=== PATIENT | female | born 1990 | race Caucasian/White ===

== ENCOUNTER 2017-10-26 09:16 | Emergency (ER) | payer BC ==
[2017-10-26] MEDS ORDERED: Albuterol Sulfate 2.5 mg/0.5 ml Neb ONE ×2 (09:41→10:13)
[2017-10-26] MEDS ORDERED: predniSONE 20 MG TAB ONE (10:14)
== END 2017-10-26 11:08 | disposition home or self-care (01) ==
LOC: SCSER 09:16
DX: O99.512 Diseases of the respiratory system complicating pregnancy, second trimester (principal); J45.901 Unspecified asthma with (acute) exacerbation; O99.282 Endocrine, nutritional and metabolic diseases complicating pregnancy, second trimester; E03.9 Hypothyroidism, unspecified; O99.342 Other mental disorders complicating pregnancy, second trimester; F32.9 Major depressive disorder, single episode, unspecified; Z79.899 Other long term (current) drug therapy; Z3A.28 28 weeks gestation of pregnancy
CPT/HCPCS: 94640; J7506; J7611; J7620

== ENCOUNTER 2018-01-03 09:12 | Day surgery (SDC) | payer BC ==
[2018-01-03 09:53] VITALS: BMI 39.4
--- NOTE | 2018-01-03 13:53 | PDOC.LDHP ---
Labor and Delivery H&P Chief complaint: contractions HPI: 27 y/o G1 at 39w2d, patient of Lucius Mccarty, presents with ctx and spotting. Denies heavy VB, LOF, or decreased FM. ROS neg for HEENT, CV, pulm, GI, , neuro, psych, skin, musculoskeletal, or constitutional symptoms other than mentioned above. Current complications: none Past Medical History: hypothyroidism Current medications: pre-lizett vitamins, other (levothyroxine) Previous surgical history: none Allergies/Adverse Reactions: Allergies Allergy/AdvReac Type Severity Reaction Status Date / Time oxymetazoline Allergy Severe Anaphylaxis Verified 01/03/18 09:39 [From Afrin (oxymetazoline)] Sulfa (Sulfonamide Allergy Intermediate Hives Verified 01/03/18 09:39 Antibiotics) Social history: none - Physical Exam Vital signs reviewed and normal: yes (single mildly elevated diastolic with multiple normal BPs) General: NAD, resting Lungs: nonlabored breathing Abdomen: gravid Extremeties: no edema FHT: category 1 (140s, mod variability, + accels, no decels) [place] contractions every: 3-4 mins - Vaginal Exam cm dilated: 2 Effacement: 75% Station: -2 - Assessment 27 y/o G1 at 39w2d with no e/o active labor. status reassuring with reactive NST. - Plan -: D/c home with precautions. Advised to keep all appointments and return with worsening of symptoms.
== END 2018-01-03 14:00 | disposition home or self-care (01) ==
LOC: L&D/OP 09:12
PROVIDERS: ATTEND Obstetrics & Gynecology
DX: O47.1 False labor at or after 37 completed weeks of gestation (principal); O26.853 Spotting complicating pregnancy, third trimester; Z3A.39 39 weeks gestation of pregnancy
CPT/HCPCS: 99283

== ENCOUNTER 2018-01-04 20:11 | Inpatient (IN) | payer BC ==
[2018-01-04 20:58] VITALS: BMI 39.4
[2018-01-04] MEDS ORDERED: Ipratropium Bromide 2.5 ml Neb NEB SCH (23:00)
[2018-01-04] MEDS ORDERED: Levalbuterol HCl 0.63 MG/3 ML NEB NEB SCH (23:00)
[2018-01-05] MEDS ORDERED: Ondansetron PF 4 MG/2 ML Vial IVP PRN ×3 (00:45→23:21)
[2018-01-05] MEDS ORDERED: Butorphanol Tartrate 1 MG/ML VIAL SLOW IVP PRN (00:45)
[2018-01-05] MEDS ORDERED: Ibuprofen 800 MG TAB PO PRN (00:45)
[2018-01-05] MEDS ORDERED: Lidocaine 1% (PF) 30 ML VIAL SC PRN (00:45)
[2018-01-05] MEDS ORDERED: Lactated Ringer's 1,000 ML IV SCH (01:00)
[2018-01-05] MEDS ORDERED: NS / Oxytocin 40 units/1000ml 1,000 ML IV PRN (01:00)
--- NOTE | 2018-01-05 01:04 | PRG ---
DATE OF SERVICE: 01/04/2018 PRIMARY OB: Ms. Alicja Mccarty CHIEF COMPLAINT: Abdominal pain. HISTORY OF PRESENT ILLNESS: The patient is a 27-year-old female with an intrauterine at 39 weeks and 3 days who is presenting to Labor and Delivery with uterine contractions. She reports that for the last 3 hours, they have been about 4-6 minutes apart. The patient denies any leakage of fluid. Reports some vaginal spotting. Denies fall, fever, headache, chest pain , shortness of breath. Denies nausea, vomiting, diarrhea, constipation. Denies any new rashes, hip problems, knee problems, muscle weakness. Denies leakage of fluid, urinary urgency or frequency. PAST MEDICAL HISTORY: Asthma, thyroid disorder. ALLERGIES: Seasonal allergies. PAST SURGICAL HISTORY: Dental surgery, removal of wisdom teeth. SOCIAL HISTORY: Denies drug, alcohol or tobacco use. ALLERGIES: AFRIN and SULFA DRUGS. MEDICATIONS: Albuterol as needed, levothyroxine 50 mcg per day, sertraline 50 mcg daily. OB LABS: Blood type is A positive. Diabetes screen Glucola 139; 3-hour test was within normal limits. Group B strep is negative. Third trimester RPR is nonreactive and third trimester HIV is nonreactive. REVIEW OF SYSTEMS: Per HPI. PHYSICAL EXAMINATION: VITAL SIGNS: Blood pressure 122/80, heart rate of 100, respiratory rate of 14, satting 96% to 97% on room air, temperature 98.8. GENERAL: She appears to be in no acute distress. She is alert and oriented, cooperative and pleasant to interact with. HEENT: Normocephalic, atraumatic. LUNGS: Have some wheezing and whistle. ABDOMEN: Soft with some tenderness on the left. EXTREMITIES: Nontender, nonedematous. CERVICAL EXAM: She is 3.5 cm dilated, 80% effaced, -1 station. heart tracing performed for abdominal pain in . Baseline is noted to be 150s with moderate long-term variability, positive accelerations, no decelerations. Contractions are every 4-6 minutes. ASSESSMENT AND PLAN: The patient is a 27-year-old female with an intrauterine at 39 weeks and 3 days here for uterine contractions. The patient has evidence of latent labor. She is getting a repeat cervical exam 2 hours after initial exam. Should she have any significant change patient will be admitted for expectant management. Should she continue in latent labor, the patient will be discharged to home and she is requesting a natural process. Fetus is reactive. The patient is GBS negative. Patient does have some with full and mild wheezing for which she has been taking albuterol at home. We will discuss the nebulizer treatment before she is discharged if she has no cervical change. The patient has an appointment tomorrow with her primary OB's office, which we have encouraged that she keep. Addendum. pt had cervical change to 4/80/-1 station and was admitted for expectant management. TAI
[2018-01-05 01:37] LABS: Hemoglobin 12.3 g/dL (12.0-16.0); Mean Corpuscular HGB CONC 33.1 g/dL (32.0-36.0); Mean Corpuscular Hemoglobin 29.9 pg (27.0-31.0); Mean Corpuscular Volume 90.3 fL (78.0-98.0); Mean Platelet Volume 6.8 fL (7.4-10.4); Platelet Count 248 thou/uL (130-400); Red Blood Cell (RBC) Count 4.11 mill/uL (4.20-5.40); White Blood Cell (WBC) Count 11.5 thou/uL (4.8-10.8)
[2018-01-05 02:14] LABS: HBSAg Index 0.34 S/CO (0-0.99); Hep B Surf Ag Non-Reactive S/CO (NonReactive)
[2018-01-05 04:48] LABS: Syphilis Antibody Nonreactive (Nonreactive); Syphilis Antibody Index 0.03 S/CO (<1.00 Non-Reactive)
[2018-01-05] MEDS: Lactated Ringer's 1,000 ML IV SCH ×2 (08:04→13:15)
[2018-01-05] MEDS ORDERED: Ipratropium Bromide 2.5 ml Neb ONE (10:28)
[2018-01-05] MEDS: Ipratropium Bromide 2.5 ml Neb NEB SCH ×4 (10:42→22:58)
--- NOTE | 2018-01-05 11:44 | PDOC.EVN ---
Event Note - Event Note Event Note: Taking over care from Dr. Watson. at 39 weeks admitted in early labor. SVE remains 4/90/0 vtx. Fhts stable, UCs q 3-4 mins. AROM shows light mec. Plan: watch progress.
[2018-01-05] MEDS ORDERED: Fentanyl 4 mcg/Bup 0.1% Cadd 0 ML ONE (12:26)
[2018-01-05] MEDS ORDERED: Fentanyl 4 mcg/Bup 0.1% Cadd 100 ML ONE ×2 (12:27→19:36)
[2018-01-05] MEDS ORDERED: Lidocaine 2% MPF 10 ML AMP (For Epidural Use) ONE ×2 (13:00→13:34)
[2018-01-05] MEDS ORDERED: Terbutaline Sulfate 1 MG/ML VIAL ONE (13:00)
[2018-01-05] MEDS ORDERED: Ondansetron PF 4 MG/2 ML Vial ONE ×2 (13:34→23:00)
[2018-01-05] MEDS ORDERED: Naloxone HCl 0.4 mg/ml Vial IVP PRN ×4 (13:38→23:21)
[2018-01-05] MEDS ORDERED: Promethazine HCl 25 MG/ML VIAL IM PRN ×2 (13:38→23:21)
[2018-01-05] MEDS ORDERED: diphenhydrAMINE 50 MG/ML VIAL IVP PRN ×2 (13:38→23:21)
[2018-01-05] MEDS ORDERED: Eucerin (Mineral Oil/Petrolatum,White) 30 gm Jar TOP PRN (13:38)
[2018-01-05] MEDS ORDERED: ePHEDrine/0.9% NaCl/PF SYRINGE 50 mg/10 ml SLOW IVP PRN (13:38)
[2018-01-05] MEDS ORDERED: Acetaminophen 325 MG TAB PO PRN (13:38)
[2018-01-05] MEDS ORDERED: Lactated Ringer's 500 ML IV PRN (13:38)
[2018-01-05] MEDS ORDERED: Fentanyl 4 mcg/Bupivacaine 0.1% Cassette 100 ML EPIDURAL SCH (13:45)
[2018-01-05] MEDS ORDERED: Communication Order-Pharmacy FS SCH ×2 (13:45→23:30)
--- NOTE | 2018-01-05 14:07 | PDOC.EVN ---
Event Note - Event Note Event Note: Comfortable post epidural placement. SVE per RN= 6/C/0 vtx. Fhts stable, UCs seen q 4 mins. A/P; Progressing, cont. present management.
[2018-01-05] MEDS ORDERED: NS w/ Oxytocin 10 units 500 ML ONE (16:07)
--- NOTE | 2018-01-05 16:10 | PDOC.EVN ---
Event Note - Event Note Event Note: Remains comfortable with epidural. SVE remains 6 cm/complete/0 station, vtx per Rosalinda RN. FHts stable, no decels. UCs q 4-5 min now. Plan: pitocin augmentation to obtain adequate contraction pattern.
[2018-01-05] MEDS ORDERED: NS w/ Oxytocin 10 units 500 ML IV SCH (16:15)
--- NOTE | 2018-01-05 18:14 | PDOC.EVN ---
Event Note - Event Note Event Note: SVE remains 6 cm per labor RN. Pit at 6 mu/min. FHTs stable, UCs q 2-[address] IUPC and increase pitocin to obtain adequate UC pattern.
--- NOTE | 2018-01-05 20:09 | PDOC.EVN ---
Event Note - Event Note Event Note: Comfortable. SVE by me= 8/C/0. FHTs are stable. UCs q 2-[address] Pit 2 10 mu/min. A/P; Progressing on pitocin. Cont. present management.
--- NOTE | 2018-01-05 21:26 | PDOC.EVN ---
Event Note - Event Note Event Note: Late appearing decels seen. UCs seen with couplets. SVE unchanged. Will dc pitocin, place on left side and observe.
--- NOTE | 2018-01-05 22:06 | PDOC.EVN ---
Event Note - Event Note Event Note: No further late decels seen with pitocin off. Will place FSE and restart pitocin. Observe closely.
[2018-01-05] MEDS ORDERED: Azithromycin 500 MG in Sodium Chloride 0.9% 250 ML 250 ML IVPB SCH (22:50)
--- NOTE | 2018-01-05 22:51 | PDOC.EVN ---
Event Note - Event Note Event Note: Pitocin restarted. Deep variable with late return seen. SVE remains 8-9/C/O. A/P: FTP, inability to tolerate augmentation. Will proceed with 1* C/S. Anesthesia notified.
[2018-01-05] MEDS ORDERED: Bicitra 30 ML UDCUP ONE (22:56)
[2018-01-05] MEDS ORDERED: Morphine PF 1 MG/ML SYR ONE (22:59)
[2018-01-05] MEDS ORDERED: Bicitra 30 ML UDCUP PO SCH (23:00)
[2018-01-05] MEDS ORDERED: CEFAZOLIN/Water 2 GM/20 ML SYRINGE SLOW IVP SCH (23:00)
[2018-01-05] MEDS ORDERED: Lidocaine 2% 10 ML INJ ONE (23:00)
[2018-01-05] MEDS ORDERED: Oxytocin 10 UNITS/ML VIAL ONE (23:00)
[2018-01-05] MEDS ORDERED: CEFAZOLIN 2 GM/50 ML-DEXTROSE 2 GM in Premix Bag 1 BAG IVPB SCH (23:15)
[2018-01-05] MEDS ORDERED: CEFAZOLIN 1 GM VIAL ONE (23:20)
[2018-01-05] MEDS ORDERED: Hydrocerin (Eucerin) Cream 120 gm Jar TOP PRN (23:21)
[2018-01-05] MEDS ORDERED: Meperidine HCl/PF 25 MG/ML VIAL SLOW IVP PRN (23:21)
[2018-01-05] MEDS ORDERED: Ondansetron HCl/PF 4 MG/2 ML Vial IVP PRN (23:21)
[2018-01-05] MEDS ORDERED: Promethazine HCl 25 MG SUPP PR PRN (23:21)
[2018-01-05] MEDS ORDERED: HYDROmorphone 2 MG/ML VIAL SLOW IVP PRN (23:21)
[2018-01-05] MEDS ORDERED: Naloxone HCl 0.4 mg/ml Vial IV PRN (23:21)
[2018-01-05] MEDS ORDERED: L&D-Morphine 4 MG/ML VIAL SLOW IVP PRN (23:21)
[2018-01-05] MEDS ORDERED: Ketorolac Tromethamine 30 MG/ML VIAL IVP SCH (23:30)
[2018-01-05] MEDS ORDERED: Methylergonovine 0.2 MG/ML VIAL ONE (23:35)
[2018-01-05] MEDS ORDERED: Carboprost 250 MCG/ML AMP ONE (23:38)
[2018-01-05 23:51] LABS: Actual Bicarbonate (HCO3a) 26.2 mEq/L (22-28); Actual Bicarbonate (HCO3v) 26 mEq/L (22-28); Base Excess -1.4 mEq/L (-2.0 to +3.0); Base Excess (BEa) -1.4 mEq/L (-2.0 to +3.0); pH (Cord, venous) 7.29 (7.32-7.43)
[2018-01-05] MEDS ORDERED: Misoprostol 200 MCG TAB ONE (23:56)
[2018-01-06] MEDS ORDERED: Misoprostol 200 MCG TAB PR SCH (00:15)
[2018-01-06] MEDS ORDERED: Ketorolac Tromethamine 30 MG/ML VIAL ONE (00:16)
[2018-01-06] MEDS: Ketorolac Tromethamine 30 MG/ML VIAL IVP PRN ×4 (00:17→20:39)
[2018-01-06] MEDS: Ipratropium Bromide 2.5 ml Neb NEB SCH ×6 (00:41→22:33)
--- NOTE | 2018-01-06 01:01 | PDOC.PP ---
Post Progress Note Post Day #: POD1 (early) Subjective: Doing well, no c/o. PO intake tolerated: no Flatus: no Ambulation: no Vital Signs (12 hours) Pulse Resp Pulse Ox 01/06/18 00:41 120 H 20 94 L 01/05/18 19:31 104 H 16 100 01/05/18 14:46 103 H 16 98 Weight Weight 91.626 kg - Physical Examination General: NAD Respiratory: non-labored breathing Abdominal: no distention Skin: CS incision dry & intact Psychiatric: normal affect Result Diagrams: 01/05/18 01:10 Additional Labs: Post Labs Blood Type A POSITIVE 01/05/18 01:10 Hep Bs Antigen Non-Reactive S/CO (NonReactive) 01/05/18 01:10 - Assessment/Plan Stable post op. Transfer to floor from . Routine postop care.
[2018-01-06] MEDS ORDERED: NS / Oxytocin 40 units/1000ml 1,000 ML ONE (01:18)
[2018-01-06] MEDS ORDERED: Methylergonovine 0.2 MG/ML VIAL IM PRN (01:45)
[2018-01-06] MEDS ORDERED: HYDROcodone/Acetaminophen 5/325 mg Tablet PO PRN (01:45)
[2018-01-06] MEDS ORDERED: Bisacodyl 10 MG SUPP PR PRN (01:45)
[2018-01-06] MEDS ORDERED: Lanolin Ointment 7 GM TUBE TOP PRN (01:45)
[2018-01-06] MEDS ORDERED: Methylergonovine 0.2 MG TAB PO PRN (01:45)
[2018-01-06] MEDS ORDERED: diphenhydrAMINE 25 MG CAP PO PRN (01:45)
[2018-01-06] MEDS: Lactated Ringer's 1,000 ML IV SCH (02:49)
--- NOTE | 2018-01-06 04:05 | OP ---
DATE OF OPERATION: 01/05/2018 PREOPERATIVE DIAGNOSES: 1. Term intrauterine in labor. 2. Failure to progress. 3. Inability to tolerate Pitocin augmentation. POSTOPERATIVE DIAGNOSES: 1. Term intrauterine in labor. 2. Failure to progress. 3. Inability to tolerate Pitocin augmentation. 4. Persistent occiput posterior. SURGEON: Jordy Mann MD [employer] SURGEON: Philippe Waldrop MD, PGY-3 ANESTHESIA: Epidural. QBL: 631 mL COMPLICATIONS: None. PROPHYLAXIS: 2 grams Ancef and 1 gram azithromycin. COMPLICATIONS: None. FINDINGS: 1. Viable female infant, weight 7 pounds and 14 ounces with Apgars 8 and 9 found in the occiput posterior position. Nuchal cord x1, Cord around arm x1. 2. Normal uterus, tubes, and ovaries bilaterally. TECHNIQUE IN DETAIL: After good epidural anesthesia was achieved, the patient was prepped and draped in the usual sterile fashion in the supine position with a leftward tilt. A transverse incision was made two fingerbreadths above the symphysis pubis and the abdomen was entered in layers. The uterus was identified and a bladder flap was created in the peritoneum. A transverse incision was made across the lower uterine segment and was extended bluntly. The fetus was found in the occiput posterior position and was delivered. The cord was clamped and cut and the baby was taken to the warmer. Cord gases and cord blood were then obtained. The placenta was manually removed and the inside of the uterus was curetted with a dry lap. Closure of the uterine incision was accomplished with a running locking suture of Monocryl. Good hemostasis was noted. The uterus was replaced into the abdominal cavity and the pelvic gutters were cleared of all clots and debris. The uterine incision was again reviewed and was noted to be hemostatic. The fascia was closed using two sutures of Monocryl brought laterally to the midline in an alternating running locking fashion. The subcutaneous tissue was made dry using Bovie coagulation technique. The subcutaneous tissue was approximated using interrupted Monocryl. The skin was closed with metal ori. Sponge, lap, and needle counts were correct. The patient tolerated the procedure well and was taken to the recovery room in good condition. TAI
[2018-01-06 06:01] LABS: Mean Corpuscular HGB CONC 31.5 g/dL (32.0-36.0); Mean Corpuscular Hemoglobin 28.5 pg (27.0-31.0); Mean Corpuscular Volume 90.4 fL (78.0-98.0); Mean Platelet Volume 6.8 fL (7.4-10.4); Platelet Count 224 thou/uL (130-400); RBC Distribution Width 13.8 % (11.5-14.5); Red Blood Cell (RBC) Count 4.21 mill/uL (4.20-5.40); White Blood Cell (WBC) Count 14.2 thou/uL (4.8-10.8)
[2018-01-06] MEDS ORDERED: Adacel (T-DAP) 0.5 ML VIAL IM ONE (09:00)
[2018-01-06] MEDS: Ferrous Sulfate 325 MG TAB PO SCH ×2 (09:46→17:39)
[2018-01-06] MEDS: Docusate Calcium (SURFAK) 240 MG CAP PO SCH ×2 (09:46→20:41)
[2018-01-06] MEDS: Prenatal Vitamin 1 TAB PO SCH (09:46)
[2018-01-06] MEDS: HYDROcodone/Acetaminophen 5/325 mg Tablet PO PRN ×3 (13:23→20:41)
[2018-01-06] MEDS: Simethicone Chewable 80 MG TAB PO PRN (15:15)
[2018-01-07] MEDS: HYDROcodone/Acetaminophen 5/325 mg Tablet PO PRN ×6 (00:27→21:22)
[2018-01-07] MEDS: Ipratropium Bromide 2.5 ml Neb NEB SCH ×2 (02:50→05:56)
[2018-01-07] MEDS: Ibuprofen 800 MG TAB PO SCH ×3 (04:19→20:07)
[2018-01-07] MEDS ORDERED: PROVENTIL INHALER 6.7 G (200 INHALATIONS) INH PRN (07:24)
--- NOTE | 2018-01-07 07:38 | PRG ---
DATE OF SERVICE: 01/07/2018. SUBJECTIVE: The patient is postop day #2, status post a primary for failure to progress. The patient reports that she is having good pain control with medication, tolerating p.o., voiding on her own and ambulating. Patient has requested discontinuation of her neb treatments scheduled as do es not require them at home regularly. PHYSICAL EXAMINATION: VITAL SIGNS: Blood pressure 98/63, temperature 97.8, pulse of 96, respirations 18. GENERAL: The patient appears to be in no acute distress. She is alert and oriented, cooperative and pleasant to interact with. HEENT: Head is normocephalic, atraumatic. LUNGS: Clear. ABDOMEN: Appropriately tender. Incision is clean, dry, and intact with ori. EXTREMITIES: Nontender, nonedematous. ASSESSMENT AND PLAN: The patient is postop day #2, status post a primary for failure to pr ogress. We will discontinue her neb treatments today and put an inhaler at the bedside to be used as needed. We will anticipate discharge tomorrow morning.
[2018-01-07] MEDS: Prenatal Vitamin 1 TAB PO SCH (08:48)
[2018-01-07] MEDS: Docusate Calcium (SURFAK) 240 MG CAP PO SCH ×2 (08:48→20:07)
[2018-01-07] MEDS: Ferrous Sulfate 325 MG TAB PO SCH ×2 (08:49→16:33)
[2018-01-07] MEDS: Simethicone Chewable 80 MG TAB PO PRN ×2 (08:53→18:52)
[2018-01-08] MEDS: HYDROcodone/Acetaminophen 5/325 mg Tablet PO PRN ×2 (04:23→11:17)
[2018-01-08] MEDS: Ibuprofen 800 MG TAB PO SCH ×2 (04:24→11:52)
[2018-01-08] MEDS: Ferrous Sulfate 325 MG TAB PO SCH (07:58)
[2018-01-08 08:28] VITALS: BP 117/74; TEMP 98.1
[2018-01-08] MEDS: Docusate Calcium (SURFAK) 240 MG CAP PO SCH (09:19)
[2018-01-08] MEDS: Simethicone Chewable 80 MG TAB PO PRN (09:19)
[2018-01-08] MEDS: Prenatal Vitamin 1 TAB PO SCH (09:19)
== END 2018-01-08 12:10 | disposition home or self-care (01) | DRG 788 ==
LOC: L&D/OP 20:11 → L&D 23:57 → 3SW 01-06 02:11
PROVIDERS: ADMIT Obstetrics & Gynecology; ATTEND Obstetrics & Gynecology
PROC: 10D00Z1 Extraction of Products of Conception, Low, Open Approach (ICD-10-PCS; principal; 2018-01-05)
DX: O62.1 Secondary uterine inertia (principal); J30.2 Other seasonal allergic rhinitis; O99.52 Diseases of the respiratory system complicating childbirth; Z88.2 Allergy status to sulfonamides; Z88.8 Allergy status to other drugs, medicaments and biological substances; Z79.899 Other long term (current) drug therapy; Z3A.39 39 weeks gestation of pregnancy; Z37.0 Single live birth; O77.0 Labor and delivery complicated by meconium in amniotic fluid; O76 Abnormality in fetal heart rate and rhythm complicating labor and delivery
CPT/HCPCS: 36415; 51702; 82805; 85027; 86780; 86850; 86900; 86901; 87340; 88307; 90471; 90686; 94640; 94664; 99283; 99285; G0008; J0456; J0690; J1885; J2001; J2210; J2274; J2405; J2590; J3105; J3490; J7050; J7614; J7644